=== PATIENT | male | born 1945 | race Caucasian/White ===

== ENCOUNTER 2019-03-23 06:04 | Day surgery (SDC) | payer OTHER, MEDICARE ==
[2019-03-21 14:19] VITALS: BMI 23.4
[2019-03-23 06:55] VITALS: TEMP 97.8
[2019-03-23] MEDS ORDERED: PROPOFOL 20 ML ONE (07:09)
[2019-03-23] MEDS ORDERED: MIDAZOLAM HCL 2 MG/2 ML SINGLE DOSE VIAL ONE (07:09)
[2019-03-23] MEDS ORDERED: LIDOCAINE HCL 2% (20ML MULTI-DOSE VIAL) NR ONE (07:15)
[2019-03-23] MEDS ORDERED: LIDOCAINE HCL 2% (50ML VIAL) NR ONE (07:40)
[2019-03-23 09:03] VITALS: BP 129/63
[2019-03-23 09:07] VITALS: PULSE 44
--- NOTE | 2019-03-24 15:15 | OP ---
DATE OF OPERATION: 03/23/2019 PREOPERATIVE DIAGNOSIS: Right trigger thumb. POSTOPERATIVE DIAGNOSIS: Right trigger thumb OPERATIVE PROCEDURE: Right trigger thumb release. SURGEON: Tristan Owusu MD [employer] CONSULTANT: JASON Cobb ANESTHESIA: Local with sedation. COMPLICATIONS: None. ESTIMATED BLOOD LOSS: Minimal. INDICATIONS FOR PROCEDURE: The patient is a 73-year-old male with the above fingers, indicated for operative treatment. The risks, benefits and alternatives were discussed with the patient at length and proper informed consent was obtained. DESCRIPTION OF PROCEDURE: After proper identification of the patient and correct operative site, the patient was brought to the operating room and placed supine on the table, with all bony prominences well-padded. Sedation and local anesthesia were given. The right upper extremity was prepped and draped in the usual sterile fashion. A well-padded tourniquet was placed after sterile prep. Esmarch bandage was used to exsanguinate the right upper extremity, and tourniquet was inflated to 250 mmHg. A transverse incision was made over the thumb A1 yann. The incision was taken sharply through the skin, with blunt and sharp dissection through the subcutaneous tissues, carefully protecting the digital nerves. The A1 yann was identified and found to be thickened. It was divided longitudinally. The patient then flexed and extended the thumb, and there was no longer triggering. The wound was irrigated and repaired with a 5-0 fast-absorbing plain gut as well as Dermabond. Sterile dressings were placed. The patient was brought to the Recovery in stable condition, having tolerated the procedure well. TRISTAN OWUSU M.D. [id number]
== END 2019-03-23 09:08 | disposition home or self-care (01) ==
LOC: FASU 06:04
PROVIDERS: ATTEND Orthopaedic Surgery Hand Surgery
PROC: 0LN70ZZ Release Right Hand Tendon, Open Approach (ICD-10-PCS; principal; 2019-03-23 07:45)
DX: M65.311 Trigger thumb, right thumb (principal)